=== PATIENT | male | born 1995 | race Caucasian/White ===

== ENCOUNTER 2022-03-03 12:16 | Emergency (ER) | payer BC ==
[2022-03-03 12:43] VITALS: TEMP 98.1
--- NOTE | 2022-03-03 13:15 | ED ---
General Adult HPI - General Chief complaint: Shortness of Breath Stated complaint: chest pain x4 wks Time Seen by Provider: 03/03/22 12:50 Source: patient, RN notes reviewed Mode of arrival: ambulatory Limitations: no limitations - History of Present Illness Initial comments: 26-year-old male presenting to the emergency department for chest pa in. He notes that he has had chest pain that is worse at night every night since [place]. He describes the pain as sharp and aching and burning is worse after feeling down. Does not take anything resolved on its own. She admits that he has been evaluated at 2 other institutions and was told his symptoms were due to anxiety. Denies fever, chills, abdominal pain, nausea, vomiting, diarrhea. Denies any recent sick contacts. He denies any history of cholecystectomy and appendectomy. - Related Data Home Medications Medication Instructions Recorded Confirmed No Known Home Medications 03/03/22 03/03/22 Allergies Allergy/AdvReac Type Severity Reaction Status Date / Time Penicillins Allergy Anaphylaxis Verified 03/03/22 13:40 & Hives all over body Review of Systems ROS Statement: Those systems with pertinent positive or pertinent negative responses have been documented in the HPI. ROS Other: All systems not noted in ROS Statement are negative. Past Medical History Additional Past Medical History / Comment(s): hole in heart History of Any Multi-Drug Resistant Organisms: None Reported Past Surgical History: No Surgical Hx Reported Past Psychological History: No Psychological Hx Reported Smoking Status: Vaper Past Alcohol Use History: Occasional Past Drug Use History: None Reported General Exam Limitations: no limitations General appearance: alert, in no apparent distress Head exam: Present: atraumatic, normocephalic, normal inspection Eye exam: Present: normal appearance, PERRL, EOMI. Absent: scleral icterus, conjunctival injection, periorbital swelling ENT exam: Present: normal exam, mucous membranes moist Neck exam: Present: normal inspection. Absent: tenderness, meningismus, lymphadenopathy Respiratory exam: Present: normal lung sounds bilaterally. Absent: respiratory distress, wheezes, rales, rhonchi, stridor Cardiovascular Exam: Present: normal rhythm, tachycardia, normal heart sounds. Absent: systolic murmur, diastolic murmur, rubs, gallop, clicks GI/Abdominal exam: Present: soft, normal bowel sounds. Absent: distended, tenderness, guarding, rebound, rigid Extremities exam: Present: normal inspection, full ROM, normal capillary refill. Absent: tenderness, pedal edema, joint swelling, calf tenderness Back exam: Present: normal inspection Neurological exam: Present: alert, oriented X3, CN II-XII intact Psychiatric exam: Present: normal affect, normal mood Skin exam: Present: warm, dry, intact, normal color. Absent: rash Course Vital Signs 03/03/22 03/03/22 03/03/22 12:40 13:30 14:00 Temperature 98.1 F Pulse Rate 111 H 95 96 Respiratory 18 19 19 Rate Blood Pressure 154/93 118/70 133/88 O2 Sat by Pulse 100 100 100 Oximetry 03/03/22 03/03/22 03/03/22 14:30 15:00 15:30 Temperature Pulse Rate 102 H 85 101 H Respiratory 20 20 17 Rate Blood Pressure 141/104 137/79 124/84 O2 Sat by Pulse 100 100 100 Oximetry EKG Findings - EKG Comments: EKG Findings:: I interpreted the following; EKG performed at 13:37. Rate 99, NSR with frequent PVC's. VT 132, QRS 100, QT/Qtc 336/392 Medical Decision Making - Medical Decision Making This is 26 a year old male presenting to the emergency department for chest pain. Patient was seen and evaluated physical exam essentially unremarkable. . Lab Work and imaging ordered and performed during the course in the ED. I interpreted the following: Lab work essentially unremarkable Chest XR: negatuve for evidence of consolidation . I discussed the results in detail with the patient and return precautions were discussed. Patient verbalized understanding and is agreeable with plan for discharge with follow up with his PCP and cardiology referral in 1-2 days. I discussed the case with Dr. Dario JONES who agrees with plan for discharge. - Lab Data Result diagrams: 03/03/22 13:30 03/03/22 13:30 Lab Results 03/03/22 03/03/22 03/03/22 Range/Units 13:30 13:30 13:30 WBC 7.1 (3.8-10.6) k/uL RBC 5.41 (4.30-5.90) m/uL Hgb 16.4 (13.0-17.5) gm/dL Hct 47.7 (39.0-53.0) % MCV 88.0 (80.0-100.0) fL MCH 30.4 (25.0-35.0) pg MCHC 34.5 (31.0-37.0) g/dL RDW 12.4 (11.5-15.5) % Plt Count 258 (150-450) k/uL MPV 7.6 Neutrophils % 51 % Lymphocytes % 40 % Monocytes % 5 % Eosinophils % 1 % Basophils % 1 % Neutrophils # 3.7 (1.3-7.7) k/uL Lymphocytes # 2.8 (1.0-4.8) k/uL Monocytes # 0.4 (0-1.0) k/uL Eosinophils # 0.1 (0-0.7) k/uL Basophils # 0.1 (0-0.2) k/uL Sodium 141 (137-145) mmol/L Potassium 3.8 (3.5-5.1) mmol/L Chloride 103 (98-107) mmol/L Carbon Dioxide 30 (22-30) mmol/L Anion Gap 8 mmol/L BUN 8 L (9-20) mg/dL Creatinine 0.84 (0.66-1.25) mg/dL Est GFR (CKD-EPI)AfAm >90 (>60 ml/min/1.73 sqM) Est GFR (CKD-EPI)NonAf >90 (>60 ml/min/1.73 sqM) Glucose 91 (74-99) mg/dL Plasma Lactic Acid Jason 2.0 (0.7-2.0) mmol/L Calcium 9.8 (8.4-10.2) mg/dL Total Bilirubin 0.7 (0.2-1.3) mg/dL AST 23 (17-59) U/L ALT 31 (4-49) U/L Alkaline Phosphatase 66 (38-126) U/L Troponin I (0.000-0.034) ng/mL Total Protein 7.9 (6.3-8.2) g/dL Albumin 4.8 (3.5-5.0) g/dL Lipase 113 (23-300) U/L 03/03/22 Range/Units 13:30 WBC (3.8-10.6) k/uL RBC (4.30-5.90) m/uL Hgb (13.0-17.5) gm/dL Hct (39.0-53.0) % MCV (80.0-100.0) fL MCH (25.0-35.0) pg MCHC (31.0-37.0) g/dL RDW (11.5-15.5) % Plt Count (150-450) k/uL MPV Neutrophils % % Lymphocytes % % Monocytes % % Eosinophils % % Basophils % % Neutrophils # (1.3-7.7) k/uL Lymphocytes # (1.0-4.8) k/uL Monocytes # (0-1.0) k/uL Eosinophils # (0-0.7) k/uL Basophils # (0-0.2) k/uL Sodium (137-145) mmol/L Potassium (3.5-5.1) mmol/L Chloride (98-107) mmol/L Carbon Dioxide (22-30) mmol/L Anion Gap mmol/L BUN (9-20) mg/dL Creatinine (0.66-1.25) mg/dL Est GFR (CKD-EPI)AfAm (>60 ml/min/1.73 sqM) Est GFR (CKD-EPI)NonAf (>60 ml/min/1.73 sqM) Glucose (74-99) mg/dL Plasma Lactic Acid Jason (0.7-2.0) mmol/L Calcium (8.4-10.2) mg/dL Total Bilirubin (0.2-1.3) mg/dL AST (17-59) U/L ALT (4-49) U/L Alkaline Phosphatase (38-126) U/L Troponin I <0.012 (0.000-0.034) ng/mL Total Protein (6.3-8.2) g/dL Albumin (3.5-5.0) g/dL Lipase (23-300) U/L Disposition Clinical Impression: Chest pain at rest Disposition: HOME SELF-CARE Condition: Stable Instructions (If sedation given, give patient instructions): Chest Pain (ED) Additional Instructions: Please return to the nearest the department if worsening symptoms of chest pain, palpitations, dizziness. Is patient prescribed a controlled substance at d/c from ED?: No Referrals: None,Stated [Primary Care Provider] - 1-2 days Zafar Almeida MD [STAFF PHYSICIAN] - 1-2 days Meet Dudley MD [STAFF PHYSICIAN] - 1-2 days Time of Disposition: 15:31
[2022-03-03 13:34] LABS: Basophils # (A) 0.1 k/uL (0-0.2); Basophils % (A) 1 %; Eosinophils # (A) 0.1 k/uL (0-0.7); Eosinophils % (A) 1 %; HCT 47.7 % (39.0-53.0); HGB 16.4 gm/dL (13.0-17.5); Lymphocytes # (A) 2.8 k/uL (1.0-4.8); Lymphocytes % (A) 40 %; MCH 30.4 pg (25.0-35.0); MCHC 34.5 g/dL (31.0-37.0); Mean Platelet Volume 7.6; Monocytes # (A) 0.4 k/uL (0-1.0); Monocytes % (A) 5 %; Neutrophils # (A) 3.7 k/uL (1.3-7.7); Neutrophils % (A) 51 %; Platelet Count 258 k/uL (150-450); RBC 5.41 m/uL (4.30-5.90); RDW 12.4 % (11.5-15.5); WBC 7.1 k/uL (3.8-10.6)
[2022-03-03 13:48] LABS: ALT 31 U/L (4-49); AST 23 U/L (17-59); African American GFR (CKD) >90 (>60 ml/min/1.73 sqM); Albumin 4.8 g/dL (3.5-5.0); Alkaline Phosphatase 66 U/L (38-126); Anion Gap 8 mmol/L; Blood Urea Nitrogen 8 mg/dL (9-20); Calcium 9.8 mg/dL (8.4-10.2); Carbon Dioxide 30 mmol/L (22-30); Chloride 103 mmol/L (98-107); Glucose 91 mg/dL (74-99); Lipase 113 U/L (23-300); Non-African American GFR(CKD) >90 (>60 ml/min/1.73 sqM); Potassium 3.8 mmol/L (3.5-5.1); Sodium 141 mmol/L (137-145); Total Bilirubin 0.7 mg/dL (0.2-1.3); Total Protein 7.9 g/dL (6.3-8.2)
--- NOTE | 2022-03-03 14:11 | XR ---
EXAMINATION TYPE: XR chest 2V DATE OF EXAM: 03/03/2022 COMPARISON: None HISTORY: 26-year-old male with chest pain TECHNIQUE: PA and lateral views FINDINGS: The cardiomediastinal silhouette, aorta, and pulmonary vasculature are within normal limits. Lungs an d pleural spaces are clear. IMPRESSION: No acute cardiopulmonary process.
[2022-03-03 15:43] VITALS: BP 124/84; PULSE 101; RESP 17
== END 2022-03-03 15:56 | disposition home or self-care (01) ==
LOC: EC 12:16
DX: R07.9 Chest pain, unspecified (principal); F17.290 Nicotine dependence, other tobacco product, uncomplicated; Z88.0 Allergy status to penicillin
CPT/HCPCS: 71046; 80053; 83605; 83690; 84484; 85025; 93005; 99285

== ENCOUNTER 2022-04-10 11:55 | Emergency (ER) | payer BC ==
[2022-04-10 11:59] VITALS: RESP 18
[2022-04-10 12:32] LABS: Basophils # (A) 0.1 k/uL (0-0.2); Basophils % (A) 1 %; Eosinophils # (A) 0.1 k/uL (0-0.7); Eosinophils % (A) 2 %; HCT 42.6 % (39.0-53.0); HGB 15.1 gm/dL (13.0-17.5); Lymphocytes # (A) 3.4 k/uL (1.0-4.8); Lymphocytes % (A) 46 %; MCH 30.2 pg (25.0-35.0); MCHC 35.4 g/dL (31.0-37.0); MCV 85.2 fL (80.0-100.0); Mean Platelet Volume 7.5; Monocytes # (A) 0.3 k/uL (0-1.0); Monocytes % (A) 5 %; Neutrophils # (A) 3.3 k/uL (1.3-7.7); Neutrophils % (A) 45 %; Platelet Count 225 k/uL (150-450); RBC 4.99 m/uL (4.30-5.90); RDW 13.1 % (11.5-15.5); WBC 7.4 k/uL (3.8-10.6)
[2022-04-10 12:40] LABS: ALT 42 U/L (4-49); AST 26 U/L (17-59); African American GFR (CKD) >90 (>60 ml/min/1.73 sqM); Albumin 4.4 g/dL (3.5-5.0); Alkaline Phosphatase 64 U/L (38-126); Anion Gap 12 mmol/L; Blood Urea Nitrogen 12 mg/dL (9-20); Calcium 9.3 mg/dL (8.4-10.2); Carbon Dioxide 24 mmol/L (22-30); Chloride 105 mmol/L (98-107); Glucose 116 mg/dL (74-99); Magnesium 1.6 mg/dL (1.6-2.3); Non-African American GFR(CKD) >90 (>60 ml/min/1.73 sqM); Potassium 3.4 mmol/L (3.5-5.1); Sodium 141 mmol/L (137-145); Total Bilirubin 0.4 mg/dL (0.2-1.3); Total Protein 7.3 g/dL (6.3-8.2)
[2022-04-10 13:05] LABS: INR 0.9 (<1.2); Partial Thromboplastin Time 24.5 sec (22.0-30.0); Prothrombin Time 9.9 sec (9.0-12.0)
--- NOTE | 2022-04-10 13:15 | ED ---
Chest Pain HPI - General Chief Complaint: Chest Pain Stated Complaint: Chest pain Time Seen by Provider: 04/10/22 12:00 Source: patient, RN notes reviewed Mode of arrival: ambulatory Limitations: no limitations - History of Present Illness Initial Comments: 26-year-old male presents emergency Department chief complaint of chest, palpitations. Patient states started just prior arrival. He states that his metoprolol last night as directed. Patient states he recently was placed on metoprolol secondary to tachycardia, palpitations. Patient is currently seen cardiology has had extensive workup. Patient states that he had some discomfort in his heart was racing. She states she did not fill the pain that he did before that he leg pain or leg swelling denies any chills no cough or cold like symptoms no abdominal complaints. - Related Data Home Medications Medication Instructions Recorded Confirmed Metoprolol Succinate (ER) [Toprol 25 mg PO HS 04/10/22 04/10/22 Xl] Allergies Allergy/AdvReac Type Severity Reaction Status Date / Time Penicillins Allergy Anaphylaxis Verified 04/10/22 12:59 & Hives all over body Review of Systems ROS Statement: Those systems with pertinent positive or pertinent negative responses have been documented in the HPI. ROS Other: All systems not noted in ROS Statement are negative. EKG Findings - EKG Comments: EKG Findings:: EKG performed at 12:03 sinus rhythm rate 99 TN 1:30 QRS 111 QT/QTC 356/406 - EKG Results: EKG: interpreted by [facility] Past Medical History Additional Past Medical History / Comment(s): hole in heart History of Any Multi-Drug Resistant Organisms: None Reported Past Surgical History: No Surgical Hx Reported Past Psychological History: No Psychological Hx Reported Smoking Status: Vaper Past Alcohol Use History: Occasional Past Drug Use History: None Reported General Exam Limitations: no limitations General appearance: alert, in no apparent distress Head exam: Present: atraumatic, normocephalic, normal inspection Eye exam: Present: normal appearance, PERRL, EOMI. Absent: scleral icterus, conjunctival injection, periorbital swelling ENT exam: Present: normal exam, normal oropharynx, mucous membranes moist Neck exam: Present: normal inspection, full ROM. Absent: tenderness, meningismus, lymphadenopathy Respiratory exam: Present: normal lung sounds bilaterally. Absent: respiratory distress, wheezes, rales, rhonchi, stridor Cardiovascular Exam: Present: normal rhythm, tachycardia, normal heart sounds. Absent: systolic murmur, diastolic murmur, rubs, gallop, clicks GI/Abdominal exam: Present: soft, normal bowel sounds. Absent: distended, tenderness, guarding, rebound, rigid Neurological exam: Present: alert, oriented X3, CN II-XII intact Psychiatric exam: Present: anxious Skin exam: Present: warm, dry, intact, normal color. Absent: rash Course Vital Signs 04/10/22 11:57 Temperature 98.1 F Pulse Rate 114 H Respiratory 18 Rate Blood Pressure 144/99 O2 Sat by Pulse 100 Oximetry Chest Pain MDM - MDM Was pt. sent in by a medical professional or institution (, [facility], BRIDGE MAINTENANCE WORKER, urgent care, hospital, or detention...) When possible be specific @ -No Did you speak to anyone other than the patient for history (EMS, parent, family, police, friend...)? What history was obtained from this source @ -No Did you review nursing and triage notes (agree or disagree)? Why? @ -I reviewed and agree with nursing and triage notes Were old charts reviewed (outside hosp., previous admission, EMS record, old EKG, old radiological studies, urgent care reports/EKG's, detention records)? Report findings @ -Reviewed prior labs, EKG Differential Diagnosis (chest pain, altered mental status, abdominal pain women, abdominal pain men, vaginal bleeding, weakness, fever, dyspnea, syncope, headache, dizziness, GI bleed, back pain, seizure, CVA, palpatations, mental health)? @ -Palpitations, chest pain, chest wall pain, anxiety, pneumothorax, pneumonia, this is his nonconclusive EKG interpreted by me (3pts min.). @ -As above X-rays interpreted by me (1pt min.). @ -Chest x-ray shows no acute process CT interpreted by me (1pt min.). @ -None done U/S interpreted by me (1pt. min.). @ -None done What testing was considered but not performed or refused? (CT, X-rays, U/S, labs)? Why? @ -None What meds were considered but not given or refused? Why? @ -None Did you discuss the management of the patient with other professionals (professionals i.e. , [facility], BRIDGE MAINTENANCE WORKER, lab, RT, psych nurse, social worker aide, meter record clerk, teacher, state patrol officer, manager case)? Give summary @ -No Was smoking cessation discussed for >3mins.? @ -No Was critical care preformed (if so, how long)? @ -No Were there social determinants of health that impacted care today? How? (Homelessness, low income, unemployed, alcoholism, drug addiction, transportation, low edu. Level, literacy, decrease access to med. care, skilled nursing, rehab)? @ -No Was there de-escalation of care discussed even if they declined (Discuss DNR or withdrawal of care, Hospice)? DNR status @ -No What co-morbidities impacted this encounter? (DM, HTN, Smoking, COPD, CAD, Cancer, CVA, ARF, Chemo, Hep., AIDS, mental health diagnosis, sleep apnea, morbid obesity)? @ -None Was patient admitted / discharged? Hospital course, mention meds given and route, prescriptions, significant lab abnormalities, going to OR and other pertinent info. @ -Discharged patient has no palpitations, tachycardia patient did not take his metoprolol today was given emergency department his pain had resolved with evidence of mild hyperkalemia. Patient is scheduled for further testing will be discharged in stable condition. Undiagnosed new problem with uncertain prognosis? @ -No Drug Therapy requiring intensive monitoring for toxicity (Heparin, Nitro, Insulin, Cardizem)? @ -No Were any procedures done? @ -No Diagnosis/symptom? @ -Chest pain Acute, or Chronic, or Acute on Chronic? @ -Acute Uncomplicated (without systemic symptoms) or Complicated (systemic symptoms)? @ -Uncomplicated Side effects of treatment? @ -No Exacerbation, Progression, or Severe Exacerbation? @ -No Poses a threat to life or bodily function? How? (Chest pain, USA, ID, pneumonia, PE, COPD, DKA, ARF, appy, cholecystitis, CVA, Diverticulitis, Homicidal, Suicidal, threat to staff... and all critical care pts) @ -No Disposition Clinical Impression: Chest pain Disposition: HOME SELF-CARE Condition: Stable Instructions (If sedation given, give patient instructions): Chest Pain (ED) Additional Instructions: Please return to the Emergency Department if symptoms worsen or any other concerns. Is patient prescribed a controlled substance at d/c from ED?: No Referrals: None,Stated [Primary Care Provider] - 1-2 days Time of Disposition: 14:10
--- NOTE | 2022-04-10 13:34 | XR ---
EXAMINATION TYPE: XR chest 2V DATE OF EXAM: 04/10/2022 1:16 PM COMPARISON: Chest radiographs from 03/03/2022 TECHNIQUE: XR chest 2V Frontal and lateral views of the chest. CLINICAL INDICATION:Male, 26 years old with history of Chest Pain; FINDINGS: Lungs/Pleura: There is no evidence of pleural effusion, focal consolidation, or pneumothorax. Pulmonary vascularity: Unremarkable. Heart/mediastinum: Cardiomediastinal silhouette is unremarkable. Musculoskeletal: No acute osseous pathology. IMPRESSION: No acute cardiopulmonary disease/process. No change from prior exam.
[2022-04-10] MEDS ORDERED: POTASSIUM CHLORIDE ER 20 MEQ TAB.ER PO STA (13:46)
[2022-04-10 14:31] VITALS: BP 119/94; PULSE 94; TEMP 98.3
== END 2022-04-10 14:31 | disposition home or self-care (01) ==
LOC: EC 11:55
DX: R07.89 Other chest pain (principal); F17.290 Nicotine dependence, other tobacco product, uncomplicated; Z88.0 Allergy status to penicillin
CPT/HCPCS: 36415; 71046; 80053; 83735; 84484; 85025; 85379; 85610; 85730; 99285

== ENCOUNTER 2022-12-12 11:14 | Emergency (ER) | payer BC, OTHER ==
[2022-12-12] MEDS ORDERED: ASPIRIN 81 MG PO STA (11:31)
--- NOTE | 2022-12-12 11:38 | ED ---
General Adult HPI - General Chief complaint: Chest Pain Stated complaint: Chest Pain Time Seen by Provider: 12/12/22 11:21 Source: patient, RN notes reviewed Mode of arrival: ambulatory Limitations: no limitations - History of Present Illness Initial comments: Patient 27-year-old male presented to the emergency room today with a chief complaint of chest pain. Patient does admit that his had some pain off and on over the last few days. She describes it as a "sharp" type pain left side of the chest. He states he has had pain similar to this in the past. He does admit that he saw cardiology approximately 2 months ago this was started on metoprolol. Patient denies anything that seems to make symptoms better or worse. He does admit that pain over the last few days has been lasting approximate an hour and then relieves. Patient does admit that this pain started around. When he woke up. He does admit that the intensity is currently 7/10 which is better than what was this morning. He denies any other complaints or any other symptoms. Patient denies any recent fever, chills, shortness of breath, back pain, abdominal pain, nausea or vomiting, numbness or tingling, headaches or visual changes, or any other complaints. - Related Data Home Medications Medication Instructions Recorded Confirmed Metoprolol Succinate (ER) [Toprol 25 mg PO DAILY@1200 04/10/22 12/12/22 Xl] Allergies Allergy/AdvReac Type Severity Reaction Status Date / Time Penicillins Allergy Anaphylaxis Verified 12/12/22 12:18 & Hives all over body Review of Systems ROS Statement: Those systems with pertinent positive or pertinent negative responses have been documented in the HPI. ROS Other: All systems not noted in ROS Statement are negative. Past Medical History Past Medical History: Hypertension Additional Past Medical History / Comment(s): hole in heart History of Any Multi-Drug Resistant Organisms: None Reported Past Surgical History: No Surgical Hx Reported Past Psychological History: No Psychological Hx Reported Smoking Status: Vaper Past Alcohol Use History: Occasional Past Drug Use History: None Reported General Exam - General Exam Comments Initial Comments: General: The patient is awake and alert, in no distress, and does not appear acutely ill. Eye: extra-ocular movements are intact. There is normal conjunctiva bilaterally. No signs of icterus. Ears, nose, mouth and throat: There are moist mucous membranes and no oral lesions. Neck: The neck is supple, there is no tenderness or JVD. Cardiovascular: There is a regular rate and rhythm. No murmur, rub or gallop is appreciated. Respiratory: Lungs are clear to auscultation, respirations are non-labored, breath sounds are equal. No wheezes, stridor, rales, or rhonchi. Gastrointestinal: Soft nontender. Musculoskeletal: Normal ROM, no tenderness. Neurological: A&O x 3. CN II-XII intact, There are no obvious motor or sensory deficits. Coordination appears grossly intact. Speech is normal. Skin: Skin is warm and dry and no rashes or lesions are noted. Psychiatric: Cooperative, appropriate mood & affect, normal judgment. Limitations: no limitations Course Vital Signs 12/12/22 12/12/22 11:18 12:20 Temperature 98.2 F Pulse Rate 95 86 Respiratory 20 20 Rate Blood Pressure 135/79 130/83 O2 Sat by Pulse 99 99 Oximetry EKG Findings - EKG Comments: EKG Findings:: EKG performed at 1129: Shows normal sinus rhythm at 97 bpm. WA interval 143. QRS 110. QT/QTC 350/404. There are some inverted T waves in leads II, III, and aVF. Occasional PVC. Medical Decision Making - Medical Decision Making History was obtained from patient/Nurse/ I reviewed the external/internal non-ED medical records. Pertinent findings include EKG from 04/10/2022 was reviewed. Initial assessment and chief complaint: Chest pain Chronic conditions affecting care: Hypertension Social determinants affecting care: None Differential diagnosis included, but not limited to: OR, pneumonia, pneumothorax, reflux, costochondritis Any imaging that may have been performed was also reviewed. I did an independent interpretation of the patient's imaging. My interpretation of chest x-ray was unremarkable. 27-year-old male presented to the emergency room today with chief chest discomfort. Patient does admit that the pain is been off and on over the last several days. Does admit that he's had pain similar to this in the past. He states most recently seen his finish opener at the end of October. He states was started on metoprolol at that time spent taking the medication. Patient but is been stable here in the emergency room. Chest x-ray was unremarkable. EKG did show some inverted T waves in leads II, III, aVF. Patient does admit that his pain is improved here in emergency room. Patient's pain is reproducible on palpation of the chest wall. His troponins negative. Symptoms started several days ago. Patient states he does feel comfortable being discharged home at this time. Patient is advised follow-up with his finish opener. Advised to return to emergency room for symptoms increase worsen appropriate concerns. He states understanding and is agreement with this plan. - Lab Data Result diagrams: 12/12/22 11:53 12/12/22 11:53 Lab Results 12/12/22 12/12/22 12/12/22 Range/Units 11:53 11:53 11:53 WBC 7.3 (3.8-10.6) k/uL RBC 5.06 (4.30-5.90) m/uL Hgb 14.7 (13.0-17.5) gm/dL Hct 43.6 (39.0-53.0) % MCV 86.3 (80.0-100.0) fL MCH 29.0 (25.0-35.0) pg MCHC 33.6 (31.0-37.0) g/dL RDW 13.0 (11.5-15.5) % Plt Count 240 (150-450) k/uL MPV 7.1 Neutrophils % 69 % Lymphocytes % 24 % Monocytes % 4 % Eosinophils % 1 % Basophils % 0 % Neutrophils # 5.1 (1.3-7.7) k/uL Lymphocytes # 1.8 (1.0-4.8) k/uL Monocytes # 0.3 (0-1.0) k/uL Eosinophils # 0.1 (0-0.7) k/uL Basophils # 0.0 (0-0.2) k/uL Sodium 141 (137-145) mmol/L Potassium 3.9 (3.5-5.1) mmol/L Chloride 104 (98-107) mmol/L Carbon Dioxide 28 (22-30) mmol/L Anion Gap 9 mmol/L BUN 10 (9-20) mg/dL Creatinine 0.80 (0.66-1.25) mg/dL Est GFR (CKD-EPI)AfAm >90 (>60 ml/min/1.73 sqM) Est GFR (CKD-EPI)NonAf >90 (>60 ml/min/1.73 sqM) Glucose 79 (74-99) mg/dL Calcium 9.4 (8.4-10.2) mg/dL Total Bilirubin 0.5 (0.2-1.3) mg/dL AST 22 (17-59) U/L ALT 23 (4-49) U/L Alkaline Phosphatase 58 (38-126) U/L Troponin I <0.012 (0.000-0.034) ng/mL Total Protein 7.3 (6.3-8.2) g/dL Albumin 4.0 (3.5-5.0) g/dL Disposition Clinical Impression: Chest pain Disposition: HOME SELF-CARE Condition: Good Instructions (If sedation given, give patient instructions): Costochondritis (ED) Additional Instructions: Please follow-up with your PCP/finish opener as discussed. Return to the emergency room for any other concerns. Is patient prescribed a controlled substance at d/c from ED?: No Referrals: None,Stated [REFERRING] - 1-2 days Time of Disposition: 13:30
[2022-12-12 12:13] LABS: Basophils % (A) 0 %; Eosinophils # (A) 0.1 k/uL (0-0.7); Eosinophils % (A) 1 %; HCT 43.6 % (39.0-53.0); HGB 14.7 gm/dL (13.0-17.5); Lymphocytes # (A) 1.8 k/uL (1.0-4.8); Lymphocytes % (A) 24 %; MCHC 33.6 g/dL (31.0-37.0); MCV 86.3 fL (80.0-100.0); Mean Platelet Volume 7.1; Monocytes # (A) 0.3 k/uL (0-1.0); Monocytes % (A) 4 %; Neutrophils # (A) 5.1 k/uL (1.3-7.7); Neutrophils % (A) 69 %; Platelet Count 240 k/uL (150-450); RBC 5.06 m/uL (4.30-5.90); WBC 7.3 k/uL (3.8-10.6)
[2022-12-12 12:26] LABS: ALT 23 U/L (4-49); AST 22 U/L (17-59); African American GFR (CKD) >90 (>60 ml/min/1.73 sqM); Alkaline Phosphatase 58 U/L (38-126); Anion Gap 9 mmol/L; Blood Urea Nitrogen 10 mg/dL (9-20); Calcium 9.4 mg/dL (8.4-10.2); Carbon Dioxide 28 mmol/L (22-30); Chloride 104 mmol/L (98-107); Glucose 79 mg/dL (74-99); Non-African American GFR(CKD) >90 (>60 ml/min/1.73 sqM); Potassium 3.9 mmol/L (3.5-5.1); Sodium 141 mmol/L (137-145); Total Bilirubin 0.5 mg/dL (0.2-1.3); Total Protein 7.3 g/dL (6.3-8.2)
--- NOTE | 2022-12-12 12:29 | XR ---
EXAMINATION TYPE: XR chest 2V DATE OF EXAM: 12/12/2022 COMPARISON: 04/10/2022 HISTORY: Chest pain TECHNIQUE: Frontal and lateral views of the chest are obtained. FINDINGS: There is no focal air space opacity. No evidence for pneumothorax. No pleural effusion. The cardiac silhouette size is within normal limits. The osseous structures are grossly intact. IMPRESSION: 1. No acute cardiopulmonary process.
[2022-12-12 13:54] VITALS: BP 135/91; PULSE 75; RESP 18; TEMP 98.5
== END 2022-12-12 13:43 | disposition home or self-care (01) ==
LOC: EC 11:14
DX: R07.89 Other chest pain (principal); I10 Essential (primary) hypertension; F17.290 Nicotine dependence, other tobacco product, uncomplicated; Z88.0 Allergy status to penicillin
CPT/HCPCS: 36415; 71046; 80053; 84484; 85025; 93005; 99285